=== PATIENT | male | born 1990 | race African-American/Black ===

== ENCOUNTER 2016-10-16 15:48 | Emergency (ER) | payer OTHER ==
[2016-10-16 15:57] VITALS: BP 138/66; PULSE 98; TEMP 98; BMI 20.3
--- NOTE | 2016-10-16 16:39 | PDOC ---
History of Present Illness - General Chief Complaint: Injury Stated Complaint: INJURY Time Seen by Provider: 10/16/16 16:23 History Source: Patient, Care Provider Exam Limitations: Clinical Condition, Physical Impairment - History of Present Illness Initial Comments: 10/16/16 16:48 Per healthcare providers, comes from [facility]/ [place] [facility] where he was witnessed to be leaning backwards with a backpack on and fall striking the back of his head on edge of stare. There was no LOC, no changes in his behavior , no obvious injury or swelling, no bleeding and no other problem.Per protocol patient needed evaluation and clearance. Patient is MR and nonverbal however ambulatory and functional. Her health care attendants states his behavior has been unchanged since incident, no vomiting, no distracting injury. Occurred: reports: just prior to arrival, this afternoon Pain Location: reports: none, head Modifying Factors: improves with: None Past History - Travel Traveled outside of the country in the last 30 days: No Close contact w/someone who was outside of country & ill: No - Past Medical History Allergies/Adverse Reactions: Allergies Allergy/AdvReac Type Severity Reaction Status Date / Time No Allergy Information Allergy Verified 10/16/16 15:57 Available Psychiatric Problems: (add, hyperactivity) Seizures: Yes Other medical history: intellectual disability - Immunization History Immunization Up to Date: Yes - Psycho/Social/Smoking Cessation Hx Suicidal Ideation: No Smoking History: Never smoked Review of Systems - Review of Systems Able to Perform ROS?: Yes Is the patient limited Danish proficient: Yes Constitutional: Yes: Symptoms Reported, See HPI. No: Malaise HEENTM: Yes: See HPI. No: Symptoms Reported, Eye Pain Respiratory: Yes: See HPI. No: Symptoms reported Musculoskeletal: Yes: See HPI. No: Symptoms Reported, Back Pain Neurological: Yes: See HPI (no changes in behavior, patient is nonverbal). No: Symptoms reported All Other Systems: Reviewed and Negative *Physical Exam - Vital Signs Last Vital Signs Temp Pulse Resp BP Pulse Ox 98.0 F 98 H 16 138/66 100 10/16/16 15:52 10/16/16 15:52 10/16/16 15:52 10/16/16 15:52 10/16/16 15:52 - Physical Exam General Appearance: Yes: Nourished, Appropriately Dressed. No: Apparent Distress HEENT: positive: SHEREE, Normal ENT Inspection, TMs Normal (no hemotympanum ) Neck: positive: Supple, Other. negative: Tender Respiratory/Chest: positive: Lungs Clear Extremity: positive: Normal Capillary Refill, Normal Inspection Integumentary: positive: Normal Color. negative: Swelling, Ecchymosis, Bruising Neurologic: positive: Alert, Normal Mood/Affect, Normal Response Progress Note - Progress Note Progress Note: Superficial head injury by report, no evidence of significant injury. We'll treat conservatively Tylenol as needed *DC/Admit/Observation/Transfer Diagnosis at time of Disposition: Superficial injury head Qualifiers: Encounter type: initial encounter Qualified Code(s): S00.90XA - Unspecified superficial injury of unspecified part of head, initial encounter - Discharge Dispostion Disposition: HOME Condition at time of disposition: Stable Admit: No - Patient Instructions Printed Discharge Instructions: DI for Closed Head Injury Additional Instructions: Rest, avoid strenuous activity or exercise for the next 24-48 hours May use ice on contusions as needed. May use Tylenol or Motrin for pain relief Watch and seek evaluation for changes in behavior including crankiness, inconsolability, quietness/ sleepiness that is inappropriate, tiredness that is inappropriate, watch for worsening and changes of behavior. Seek immediate evaluation/return to emergency department for vomiting, mental status changes, pain that's out of proportion , bloody drainage from ears or nose. Followup with private physician as needed in one to 2 days for reevaluation
== END 2016-10-16 17:03 | disposition home or self-care (01) ==
LOC: JERFT 15:48
DX: S00.80XA Unspecified superficial injury of other part of head, initial encounter (principal); W01.198A Fall on same level from slipping, tripping and stumbling with subsequent striking against other object, initial encounter; Y93.89 Activity, other specified; Y92.198 Other place in other specified residential institution as the place of occurrence of the external cause; F90.9 Attention-deficit hyperactivity disorder, unspecified type; R56.9 Unspecified convulsions; F79 Unspecified intellectual disabilities
CPT/HCPCS: 99281-25

== ENCOUNTER 2016-10-17 12:46 | Emergency (ER) | payer OTHER ==
[2016-10-17 12:59] VITALS: TEMP 0; BMI 21.9
--- NOTE | 2016-10-17 13:29 | PDOC ---
Attending Attestation - Resident Resident Name: DebbieAung - ED Attending Attestation I have performed the following: I have examined & evaluated the patient, The case was reviewed & discussed with the resident, I agree w/resident's findings & plan, Exceptions are as noted - HPI HPI: 26 yo M history developmental delay presents with clutching his head. He had a head injury yesterday, seen in the ED and evaluated at the time, discharged home s/p normal eval. He has had no change in mental status from his baseline aside from clutching his head earlier today as if in pain. No weakness noted as per aide at bedside. He is no longer clutching his head. He is nonverbal and unable to provide history himself. - Physicial Exam PE: GENERAL: Awake, alert, in no acute distress HEAD: No signs of trauma EYES: PERRLA, EOMI, sclera anicteric, conjunctiva clear ENT: Auricles normal inspection, hearing grossly normal, nares patent, oropharynx clear without exudates. Moist mucosa NECK: Normal ROM, supple, no lymphadenopathy, JVD, or masses LUNGS: Breath sounds equal, clear to auscultation bilaterally. No wheezes, and no crackles HEART: Regular rate and rhythm, normal S1 and S2, no murmurs, rubs or gallops ABDOMEN: Soft, nontender, normoactive bowel sounds. No guarding, no rebound. No masses EXTREMITIES: Normal range of motion, no edema. No clubbing or cyanosis. No cords, erythema, or tenderness NEUROLOGICAL: Cranial nerves II through XII grossly intact. Moving all extremities symmetrically. SKIN: Warm, Dry, normal turgor, no rashes or lesions noted. - Medical Decision Making Pt with history of developmental delay, unable to communicate verbally. In light of this (his inability to give history), with history of clutching his head this morning, will obtain CTH. If negative, will DC back to facility.
--- NOTE | 2016-10-17 13:30 | PDOC ---
History of Present Illness - General Chief Complaint: Headache Stated Complaint: HEADACHE Time Seen by Provider: 10/17/16 13:22 - History of Present Illness Initial Comments: 10/17/16 13:45 26M w/ hx of intellectual disability (minimally verbal) and epilepsy and who came to ED yesterday for closed head injury and was discharged home on tylenol PRN who presents today with resident home care providers who said pt was holding head today as if he was in pain. Pt fell backwards and hit left side of head on railing. There was no LOC, bleeding, or any other signs or symptoms, and pt was acting in his normal behavior. Today, pt was holding his head as if in pain, and he was given two tablets of 325mg tylenol which appeared to relieve pt's pain. However, his nurse wanted him to be seen by an ED doctor to ensure there is nothing significant going on. Past History - Past Medical History Allergies/Adverse Reactions: Allergies Allergy/AdvReac Type Severity Reaction Status Date / Time No Allergy Information Allergy Verified 10/17/16 12:59 Available Home Medications: Ambulatory Orders Aripiprazole 10 mg PO DAILY 10/17/16 Aripiprazole 20 mg PO DAILY 10/17/16 Cetirizine HCl [Zyrtec -] 10 mg PO DAILY 10/17/16 Cholecalciferol (Vitamin D3) [Vitamin D3 -] 1,000 unit PO DAILY 10/17/16 Levetiracetam [Levetiracetam ER] 500 mg PO BID 10/17/16 Nystatin 1 each PO DAILY 10/17/16 Pyridoxine HCl 0 mg PO DAILY 10/17/16 Topiramate 25 mg PO TID 10/17/16 Psychiatric Problems: (add, hyperactivity) Seizures: Yes Comment:: 10/17/16 13:53 Epilepsy ADHD Intellectual disability - Immunization History Immunization Up to Date: Yes - Psycho/Social/Smoking Cessation Hx Suicidal Ideation: No Smoking History: Never smoked Have you smoked in the past 12 months: No Information on smoking cessation initiated: No Hx Alcohol Use: No Drug/Substance Use Hx: No Substance Use Type: None Review of Systems - Review of Systems Able to Perform ROS?: No (pt minimally verbal, MR) Comments:: 10/17/16 13:54 Pt is minimally verbal, so unable to elicit. *Physical Exam - Vital Signs Last Vital Signs Temp Pulse Resp BP Pulse Ox 0 F L 68 18 138/68 98 10/17/16 12:48 10/17/16 12:48 10/17/16 12:48 10/17/16 12:48 10/17/16 12:48 - Physical Exam Comments: 10/17/16 13:55 General: thin male, alert, in NAD HEENT: normocephalic, atraumatic. no visible signs of bruising or bleeding along left side of scalp where injury was reported, non-tender to palpation, no swelling Cardiac: RRR, no m/r/g, normal s1/s2 Resp: CTAB, no wheezing, no rales ABd: soft, NT, ND Extremities: no edema, +distal pulses Medical Decision Making - Medical Decision Making 10/17/16 13:59 26M w/ hx of intellectual disability and epilepsy presenting with headache after closed head injury yesterday. Pt has been acting normally, held his head as if in pain, but pain was relieved by tyelonl. PE was benign. -CT- negative for any bleeding -inform care providers to continue monitoring for signs of abnormal behavior and to bring pt back if so. -continue tylenol PRN 10/17/16 17:18 *DC/Admit/Observation/Transfer Diagnosis at time of Disposition: Superficial injury head - Discharge Dispostion Disposition: HOME Condition at time of disposition: Stable Admit: No - Patient Instructions Additional Instructions: Pt received CT scan of his head to rule out any intracranial bleeding, and it was negative. Continue giving tylenol 325-650mg every 6 hours as needed. If his headache worsens or demonstrates any significant symptoms, please return to ED. - Attestations Physician Attestion: 10/17/16 14:04 I, Dr. Anug Lewis, attest that this document has been prepared under my direction and personally reviewed by me in its entirety. I further attest, that it accurately reflects all work, treatment, procedures and medical decision -making performed by me.
[2016-10-17 18:08] VITALS: BP 135/58; PULSE 62
== END 2016-10-17 18:09 | disposition home or self-care (01) ==
LOC: JER 12:46
DX: S00.80XS Unspecified superficial injury of other part of head, sequela (principal); W01.198S Fall on same level from slipping, tripping and stumbling with subsequent striking against other object, sequela; Y92.198 Other place in other specified residential institution as the place of occurrence of the external cause; F90.9 Attention-deficit hyperactivity disorder, unspecified type; R56.9 Unspecified convulsions; F79 Unspecified intellectual disabilities
CPT/HCPCS: 70450-TC; 99283-25